=== PATIENT | female | born 1950 | race Caucasian/White ===

== ENCOUNTER → 2020-04-13 | Emergency (ER) | payer OTHER, BC ==
[~2020-04-13] VITALS: Ht 170.2 cm; Wt 72.6 kg
[~2020-04-13] MED LIST: CHOL400D PO; CIPR500T4 PO; ESCI20TA PO; FENO160T8 PO; HYDR-4833 GT; HYDROcodone-ACET 5/325MG TAB PO ONE; IOHEXOL 300 MG/ML 100ML BOTTLE IJ ONE; LEVAPOW XX; LEVO75TA6 PO; MORPHINE SULFATE 4 MG/ML SYR/VIAL IV ONE; ONDANSETRON HCL 4 MG/2 ML VIAL IV ONE; PANT1INJ3 IV; SODIUM CHLORIDE 0.9% 1,000 ML IV ONE; SPIR25TA8 PO
[2020-04-13 21:21] LABS: Basophils # (auto) 0 10 ^3/uL (0-0.2); Basophils % (auto) 0.2 % (0.0-2.0); Eosinophils # (auto) 0 10 ^3/uL (0-0.8); Eosinophils % (auto) 0.3 % (0.0-7.0); Hematocrit 38.9 % (36.0-46.0); Hemoglobin 13.1 g/dL (12.2-16.2); Lymphocytes # (auto) 1.1 10 ^3/uL (0.4-5.4); Lymphocytes % (auto) 11.9 % (10.0-50.0); Mean Corpuscular Hemoglobin 30.8 pg (28.0-32.0); Mean Corpuscular Hgb Conc. 33.6 g/dL (32.0-36.0); Mean Corpuscular Volume 91.6 fL (80.0-100.0); Monocytes # (auto) 0.6 10 ^3/uL (0-1.3); Neutrophils # (auto) 7.8 10 ^3/uL (1.6-8.6); Neutrophils % (auto) 81.6 % (37.0-80.0); Nucleated Red Blood Cells % 0.1 %; Platelet Count (auto) 263 10^3/uL (140-450); Red Blood Cells 4.25 10^6/uL (4.0-5.20); Red Cell Distribution Width 14.1 % (11.8-14.3); White Blood Cell 9.5 10^3/uL (4.4-10.8)
[2020-04-13 21:37] LABS: Anion Gap 4 (5-15); Blood Urea Nitrogen 25 mg/dL (7-18); Calcium 8.9 mg/dL (8.5-10.1); Carbon Dioxide 29 mmol/L (21-32); Chloride 104 mmol/L (98-107); Glucose 106 mg/dL (74-106); Potassium 4.5 mmol/L (3.5-5.1); Sodium 137 mmol/L (136-145)
[2020-04-13 21:43] LABS: Alanine Aminotransferase 51 U/L (13-56); Alkaline Phosphatase 48 U/L (45-117); Aspartate Aminotransferase 53 U/L (15-37); BUN/Creatinine Ratio 22.7; Bilirubin, Total 0.3 mg/dL (0.2-1.0); GFR African American 64 mL/min; GFR Non-African American 52 mL/min; Total Protein 7.3 g/dL (6.4-8.2)
[2020-04-13 23:33] VITALS: BP 140/64
== END | disposition home or self-care (01) ==
LOC: EDUNIT# 17:22 → EDBD 17:26 → ER 17:29
DX: S20.211A Contusion of right front wall of thorax, initial encounter (principal); S30.1XXA Contusion of abdominal wall, initial encounter; I10 Essential (primary) hypertension; E03.9 Hypothyroidism, unspecified; E78.5 Hyperlipidemia, unspecified; Z88.1 Allergy status to other antibiotic agents; Z88.0 Allergy status to penicillin; Z88.8 Allergy status to other drugs, medicaments and biological substances; Z79.899 Other long term (current) drug therapy; V48.5XXA Car driver injured in noncollision transport accident in traffic accident, initial encounter; Y93.89 Activity, other specified; Y92.89 Other specified places as the place of occurrence of the external cause; Y99.8 Other external cause status
CPT/HCPCS: 36415; 71260; 72128; 72131; 73080; 74177; 80053; 83880; 84484; 85025; 96374; 96375; 99285; J2270; J2405; J7030; Q9967